=== PATIENT | female | born 1950 ===

== ENCOUNTER 2020-05-11 12:42 | Emergency (ER) | payer MEDICARE ==
--- NOTE | 2020-05-11 14:04 | RAD ---
Exam: Chest one view HISTORY:Dyspnea Comparison: None FINDINGS: Cardiac silhouette:Upper normal cardiac silhouette. There are sternotomy wires. Aorta: Atherosclerosis of the aortic Pulmonary vessels: Unremarkable Costophrenic angles: Small left effusion. Minimal blunting of the right costophrenic angle LUNGS: Patchy interstitial opacities in the lung bases. Pneumothorax: None Osseous abnormalities: None IMPRESSION: Patchy interstitial opacities in the lung bases along with small left effusion. Correlate for volume overload.
[2020-05-11 14:11] LABS: #Lymphocytes 1.7 thou/uL (1.20-3.40); #Monocytes 0.7 thou/uL (0.11-0.59); #Neutrophils 6.7 thou/uL (1.40-6.50); %Basophils 0.4 % (0.0-1.0); %Eosinophils 0.3 % (0.0-10.0); %Lymphocytes 18.6 % (21.0-51.0); %Monocytes 7.3 % (0.0-10.0); %Neutrophils 73.3 % (42.0-75.0); Hemoglobin 11.1 g/dL (12.0-16.0); Mean Corpuscular Hemoglobin 29.7 pg (27.0-31.0); Mean Platelet Volume 6.4 fL (7.4-10.4); Platelet Count 202 thou/uL (130-400); RBC Distribution Width 13.5 % (11.5-14.5); Red Blood Cell (RBC) Count 3.73 mill/uL (4.20-5.40); White Blood Cell (WBC) Count 9.1 thou/uL (4.8-10.8)
[2020-05-11 14:34] LABS: ALT (SGPT) Less than 7 U/L (8-55); AST (SGOT) 8 U/L (5-34); Albumin 3.7 g/dL (3.4-4.8); Alkaline Phosphatase 115 U/L (40-110); BUN (Urea Nitrogen) 100 mg/dL (9.8-20.1); Bilirubin, Total 0.2 mg/dL (0.2-1.2); Calc. Creatinine Clearance 0 mL/min (70-130); Calcium 9.2 mg/dL (7.8-10.44); Chloride 107 mmol/L (98-107); Globulin 3.6 g/dL (2.4-3.5); Glucose 96 mg/dL (80-115); Potassium 5.6 mmol/L (3.5-5.1); Protein, Total 7.3 g/dL (5.8-8.1); Sodium 134 mmol/L (136-145)
[2020-05-11 14:55] LABS: CKMB 2.8 ng/mL (0-6.6)
[2020-05-11 15:09] LABS: Carbon Dioxide Less than 8 mmol/L (23-31)
[2020-05-11] MEDS ORDERED: Aspirin Chewable 81 MG TAB ONE (15:35)
[2020-05-11] MEDS ORDERED: cefTRIAXone\\ROCEPHIN 2 GM VIAL ONE ×2 (15:35→21:33)
[2020-05-11] MEDS ORDERED: Calcium Gluc 4.6 MEQ/10 ML (100 MG/ML) ONE (15:40)
[2020-05-11 16:51] LABS: HBSAg Index 0.26 S/CO (0-0.99); Hep B Surf Ag Non-Reactive S/CO (NonReactive)
[2020-05-11 18:59] LABS: Prothrombin Time 13.2 sec (12.0-14.7)
--- NOTE | 2020-05-11 19:11 | CON ---
DATE OF CONSULTATION: 05/11/2020 CONSULTING PHYSICIAN: ER doctor. REASON FOR CONSULTATION: End-stage renal disease evaluation and care. REASON FOR ADMISSION: Shortness of breath. HISTORY OF PRESENT ILLNESS: This is a 69-year-old female with history of end-stage renal disease, hypertension, who came to the hospital with shortness of breath. The patient missed dialysis for a few days due to inclement weather and came to the hospital, and was found to have fluid overload and hyperkalemia with severe acidosis. Nephrology was consulted. No chest pain or palpitation. No fever or chills. PAST HISTORY: Positive for end-stage renal disease, hypertension. PAST SURGICAL HISTORY: Dialysis access placement. HOME MEDICATIONS: Reviewed. ALLERGIES: . SOCIAL HISTORY: No smoking, alcohol, or illicit drug abuse. FAMILY HISTORY: No history of kidney disease. REVIEW OF SYSTEMS: CONSTITUTIONAL: Negative for weight loss or gain, ability to conduct usual activities. SKIN: Negative for rash, itching. EYES: Negative for double vision, pain. ENT/MOUTH: Negative for nose bleeding, neck stiffness, pain, tenderness. CARDIOVASCULAR: Negative for palpitations, dyspnea on exertion, orthopnea. RESPIRATORY: Negative for shortness of breath, wheezing, cough, hemoptysis, fever or night sweats. GASTROINTESTINAL: Negative for poor appetite, abdominal pain, heartburn, nausea, vomiting, constipation, or diarrhea. GENITOURINARY: Negative for urgency, frequency, dysuria, nocturia. MUSCULOSKELETAL: Negative for pain, swelling. NEUROLOGIC/PSYCHIATRIC: Negative for anxiety, depression. ALLERGY/IMMUNOLOGIC: Negative for skin rash, bleeding tendency. PHYSICAL EXAMINATION: GENERAL: This is a well-built female, in no apparent distress. VITAL SIGNS: Reviewed. HEENT: Atraumatic, normocephalic. Oral mucosa moist. NECK: Supple. CV: S1 and S2. Rate and rhythm are regular. RESPIRATORY: Clear. GASTROINTESTINAL: Abdomen is soft. MUSCULOSKELETAL: 1+ edema. DERMATOLOGIC: No skin rash. NEUROLOGIC: Alert and awake. PSYCHIATRIC: Mood and affect normal. LABORATORY DATA: Hemoglobin 11.1. Potassium 5.6, bicarb is less than 8, BUN is 100, creatinine is 21.1, and albumin is 3.7. ASSESSMENT AND PLAN: 1. End-stage renal disease. Plan to have emergent dialysis with severe acidosis and hyperkalemia. 2. Severe acidosis, life-threatening. 3. Hyperkalemia. 4. Fluid overload. 5. Edema. 6. Anemia of chronic disease. Plan is emergent dialysis. The patient is seen during dialysis and started on dialysis. Dialysis nurse notified. Thank you for the consult. We will follow. Job ID: [id number]
[2020-05-11] MEDS ORDERED: Tacrolimus 1 MG CAP PO SCH (22:00)
[2020-05-11 22:21] LABS: CKMB 2.6 ng/mL (0-6.6)
[2020-05-11 22:24] LABS: SARS-CoV-2 PCR by NAA Not Detected (NotDetected)
[2020-05-11] MEDS ORDERED: Mycophenolate 250 MG CAP PO SCH (22:30)
--- NOTE | 2020-05-11 22:38 | ULT ---
Right lower extremity venous Doppler ultrasound 05/11/2020 COMPARISON: None HISTORY: Swelling, pain, edema, assess for DVT TECHNIQUE: Multiplanar grayscale sonographic imaging venous structures right lower extremity obtained with color flow and spectral analysis FINDINGS: Right common femoral vein, greater saphenous vein, profunda femoral vein, femoral vein, pop liteal vein, and posterior tibial vein are patent. Normal blood flow, augmentation, and compression within the deep venous system. No evidence for DVT. IMPRESSION: No evidence for deep venous thrombosis of the right lower extremity.
== END 2020-05-12 00:15 | disposition home or self-care (01) ==
LOC: ERS 12:42
DX: E87.70 Fluid overload, unspecified (principal); R77.8 Other specified abnormalities of plasma proteins; N18.6 End stage renal disease; Z87.891 Personal history of nicotine dependence; Z79.899 Other long term (current) drug therapy
CPT/HCPCS: 71045; 80053; 82553; 83605; 83690; 83880; 84484 ×2; 85025; 85610; 87040; 87340; 93005; 93971; 94760; U0003; U0005; 36415; 87635; 90935; 96365; 96375; G0257; J0696; J2001; J7507; J7517